=== PATIENT | male | born 1975 | race Caucasian/White ===

== ENCOUNTER 2025-08-07 08:31 | Emergency (ER) | payer BC, OTHER | END 2025-08-07 09:51 | disposition home or self-care (01) | LOC: NAV ERS 08:31 | DX: S83.92XA Sprain of unspecified site of left knee, initial encounter (principal); E11.9 Type 2 diabetes mellitus without complications; I10 Essential (primary) hypertension; X58.XXXA Exposure to other specified factors, initial encounter | CPT/HCPCS: 99283 ==